=== PATIENT | female | born 1985 | race Caucasian/White ===

== ENCOUNTER 2018-06-02 10:20 | Emergency (ER) | payer MEDICAID, OTHER ==
[~2018-06-02] VITALS: Ht 157.5 cm; Wt 50.0 kg
[2018-06-02 10:41] VITALS: BP 107/70
[2018-06-02] MEDS ORDERED: HYDROcodone/acetaminophen 10/325mg tab PO ONE (11:00)
[2018-06-02] MEDS ORDERED: penicillin V potassium 500mg tablet PO ONE (11:00)
[2018-06-02] MEDS ORDERED: PENI500T2 PO (11:03)
== END 2018-06-02 11:22 | disposition home or self-care (01) ==
LOC: ER 10:21
DX: K08.89 Other specified disorders of teeth and supporting structures (principal); Z88.8 Allergy status to other drugs, medicaments and biological substances; Z79.899 Other long term (current) drug therapy
CPT/HCPCS: 99283

== ENCOUNTER 2018-09-30 22:11 | Emergency (ER) | payer MEDICAID ==
[~2018-09-30] VITALS: Ht 157.5 cm; Wt 52.0 kg
[2018-09-30] MEDS ORDERED: ketorolac trometh. 30mg/ml inj. IV ONE (23:50)
[2018-09-30] MEDS ORDERED: normal saline 1000ml 1,000 ML IV ONE (23:50)
[2018-09-30] MEDS ORDERED: ceFAZolin 1GM/D5W- ADD-VANTAGE 50 ML IV ONE (23:50)
[2018-09-30] MEDS ORDERED: ondansetron/PF 4mg/2ml inj IV ONE (23:50)
[2018-10-01 00:35] LABS: URINE HCG NEGATIVE (NEG)
[2018-10-01 00:38] LABS: CLARITY,URINE SLIGHTLY CLOUDY (Clear); COLOR,URINE YELLOW (Yellow); GLUCOSE, URINE NEGATIVE (Neg); KETONES,URINE TRACE mg/dl (Neg); LEUKOCYTE ESTERASE ,URINE NEGATIVE (Neg); NITRITES, URINE NEGATIVE (Neg); OCCULT BLOOD,URINE NEGATIVE (Neg); PROTEIN,URINE TRACE mg/dl (Neg); UROBILINOGEN,URINE 0.2 E.U/dL (0.2-1.0)
[2018-10-01] MEDS ORDERED: DOXYCYCLINE 100MG CAPSULE PO STA (00:38)
[2018-10-01] MEDS ORDERED: CEPH250T PO (00:40)
[2018-10-01] MEDS ORDERED: DOXY100C43 PO (00:40)
[2018-10-01 00:44] LABS: UA COLLECTION TYPE CLN CATCH MIDSTREAM
[2018-10-01 00:45] LABS: BACTERIA,URINE FEW /HPF (Neg); MUCUS STRANDS FEW /LPF (Neg); RBC,URINE 0-2 /HPF (0-2); SQUAMOUS EPITHELIAL CELL,UR FEW /LPF (FEW)
[2018-10-01 00:56] LABS: URINE AMPHETAMINE SCREEN POSITIVE (Neg); URINE BARBITUATE SCREEN NEGATIVE (Neg); URINE BENZODIAZEPINES SCREEN NEGATIVE (Neg); URINE CANNABINOID SCREEN NEGATIVE (Neg); URINE COCAINE SCREEN NEGATIVE (Neg); URINE METHADONE SCREEN NEGATIVE (Neg); URINE OPIATE SCREEN POSITIVE (Neg); URINE PHENCYCLIDINE SCREEN NEGATIVE (Neg)
[2018-10-01] MEDS ORDERED: ACYC-202 PO (01:38)
[2018-10-01 01:40] VITALS: BP 91/52
== END 2018-10-01 01:42 | disposition home or self-care (01) ==
LOC: ER 22:12
DX: L02.214 Cutaneous abscess of groin (principal); Z88.8 Allergy status to other drugs, medicaments and biological substances
CPT/HCPCS: 10060; 80305; 81001; 81025; 87088; 96365; 96375; 99283; J0690; J1885; J2405; 99284; J7030